=== PATIENT | male | born 1990 | race Caucasian/White ===

== ENCOUNTER 2020-10-30 13:20 | Emergency (ER) | payer OTHER ==
[2020-10-30 14:17] VITALS: BP 141/94; PULSE 85; RESP 18; TEMP 97.9
--- NOTE | 2020-10-30 14:19 | ED ---
General Adult HPI - General Source: patient, RN notes reviewed Mode of arrival: ambulatory Limitations: no limitations <Tai Cheung - Last Filed: 10/30/20 14:18> <Torito Hector - Last Filed: 10/30/20 22:49> - General Chief complaint: Skin/Abscess/Foreign Body Stated complaint: abscess Time Seen by Provider: 10/30/20 14:00 - History of Present Illness Initial comments: 30-year-old male presents emergency Department with chief complaint abscess to his left wrist. Patient states has been there for a while states occasionally drains out some puslike material. Patient is currently [facility] from drug abuse. Patient has appears or chills no other complaints. (Tai Cheung) 30-year-old male patient presents to the emergency room from [facility] with complaints of a abscess to the left wrist for one week. He states that from injecting heroin. He was placed on Bactrim 3 days ago he occasionally has some drainage but it does not seem to be going down. He denies any fevers and states there are no other lesions or abscesses. He denies any nausea vomiting diarrhea or fevers. (Torito Hector) - Related Data Previous Rx's Medication Instructions Recorded Cephalexin [Keflex] 500 mg PO Q6HR 7 Days #28 cap 10/30/20 Allergies Allergy/AdvReac Type Severity Reaction Status Date / Time No Known Allergies Allergy Verified 10/30/20 14:14 Review of Systems ROS Other: All systems not noted in ROS Statement are negative. <Tai Cheung - Last Filed: 10/30/20 14:18> ROS Other: All systems not noted in ROS Statement are negative. <Torito Hector - Last Filed: 10/30/20 22:49> ROS Statement: Those systems with pertinent positive or pertinent negative responses have been documented in the HPI. Past Medical History Past Medical History: No Reported History History of Any Multi-Drug Resistant Organisms: None Reported Past Surgical History: No Surgical Hx Reported Past Psychological History: No Psychological Hx Reported Smoking Status: Current every day smoker Past Alcohol Use History: None Reported Past Drug Use History: Heroin <Tai Cheung - Last Filed: 10/30/20 14:18> General Exam Limitations: no limitations <Tai Cheung - Last Filed: 10/30/20 14:18> General appearance: alert, in no apparent distress, anxious Head exam: Present: atraumatic, normocephalic, normal inspection Eye exam: Present: normal appearance Respiratory exam: Present: normal lung sounds bilaterally. Absent: respiratory distress, wheezes, rales, rhonchi, stridor Cardiovascular Exam: Present: regular rate, normal rhythm, normal heart sounds. Absent: systolic murmur, diastolic murmur, rubs, gallop, clicks Left Hand Wrist exam: Present: tenderness, swelling (Abscess approximately 2 cm round) Vascular: Present: normal capillary refill. Absent: vascular compromise Neurological exam: Present: alert, oriented X3 Psychiatric exam: Present: anxious Skin exam: Present: warm, dry, intact, normal color. Absent: rash, cyanosis, petechiae, pallor <Torito Hector - Last Filed: 10/30/20 22:49> Course Vital Signs 10/30/20 14:15 Temperature 97.9 F Pulse Rate 85 Respiratory 18 Rate Blood Pressure 141/94 O2 Sat by Pulse 100 Oximetry Procedures - Incision & Drainage Consent Obtained: verbal consent Site: hand (Left wrist) Anesthetic Used: lidocaine 1% I&D Cleaning Method: Alcohol Wipe Sterile Field Used?: Yes Scalpel Used: #11 Needle Aspiration Performed?: No Irrigation Performed?: No I&D Drainage Obtained: Pus Culture Obtained?: No Patient Tolerated Procedure: well <Torito Hector - Last Filed: 10/30/20 22:49> Medical Decision Making <Torito Hector - Last Filed: 10/30/20 22:49> - Medical Decision Making 2 cm round abscess on patient's left dorsal wrist drained with an 11 blade scalpel. There is a moderate amount of purulent drainage. Patient is currently on Bactrim. He will also be placed on Keflex and directed to continue both antibiotics and follow-up with his primary doctor in 1 week. Patient is afebrile. He has no systemic signs symptoms of infection. He will be going back to [facility]. (Torito Hector) Disposition <Tai Cheung - Last Filed: 10/30/20 14:18> Is patient prescribed a controlled substance at d/c from ED?: No Time of Disposition: 17:04 <Torito Hector - Last Filed: 10/30/20 22:49> Clinical Impression: Abscess Disposition: HOME SELF-CARE Condition: Good Instructions (If sedation given, give patient instructions): Abscess Incision and Drainage (ED) Additional Instructions: Continue taking your previously prescribed antibiotics as directed and also take Keflex as prescribed. Return to the emergency room with any new or worsening symptoms including fevers. Prescriptions: Cephalexin [Keflex] 500 mg PO Q6HR 7 Days #28 cap Referrals: None,Stated [REFERRING] - 1-2 days
[2020-10-30] MEDS ORDERED: FLUORESCEIN STRIPS 1 MG STRIP RIGHT EYE ONE (16:35)
[2020-10-30] MEDS ORDERED: LIDOCAINE 1% INJ 10MG/ML (20 ML MDV) SQ ONE (16:50)
== END 2020-10-30 17:15 | disposition home or self-care (01) ==
LOC: EC 13:20
DX: L02.414 Cutaneous abscess of left upper limb (principal); F17.200 Nicotine dependence, unspecified, uncomplicated
CPT/HCPCS: 99282; 10060; J2001